=== PATIENT | female | born 1965 | race Caucasian/White ===

== ENCOUNTER 2016-10-14 | Observation (INO) | payer BC ==
[~2016-10-14] VITALS: Ht 165.1 cm; Wt 84.4 kg
[2016-10-14] VITALS (24 sets, daily range): BP systolic 100–137; RESP 12–23; TEMP 97.8–98.6; Ht 165.1 cm; Wt 84.4 kg
[2016-10-14] MEDS ORDERED: METHYLPRED SOD SUCC 125 MG/2 ML VIAL ONE (00:35)
[2016-10-14] MEDS ORDERED: hydrOXYzine 50 MG/ML VIAL IM ONE (00:40)
[2016-10-14] MEDS ORDERED: FAMOTIDINE 20 MG INJ ONE (01:21)
[2016-10-14] MEDS ORDERED: EPINEPHrine 1 MG/ML AMP ONE (01:28)
[2016-10-14] MEDS: FAMOTIDINE 20 MG INJ IV SCH ×3 (01:50→19:31)
[2016-10-14] MEDS ORDERED: SALINE FLUSH 10 ML FLUSH PRN (01:50)
[2016-10-14] MEDS: SALINE FLUSH 10 ML FLUSH SCH ×3 (01:50→19:31)
[2016-10-14] MEDS: METHYLPRED SOD SUCC 125 MG/2 ML VIAL IV SCH ×3 (01:50→11:29)
[2016-10-14] MEDS: DIPHENHYDRAMINE 50 MG/ML VIAL IV SCH ×4 (03:30→19:29)
[2016-10-14] MEDS ORDERED: MISSING DOSE XX ONE ×2 (03:30)
[2016-10-14] MEDS: SODIUM CHLORIDE 0.9% FLUSH BAG 500 ML IV SCH (06:00)
[2016-10-14] MEDS: MONTELUKAST 10 MG TAB PO SCH (11:28)
[2016-10-14] MEDS: SODIUM CHLORIDE 0.9% 1,000 ML IV SCH ×2 (13:53→23:43)
[2016-10-14] MEDS: METHYLPRED SOD SUCC 40 MG VIAL IV SCH (23:43)
[2016-10-15] VITALS (22 sets, daily range): BP systolic 110–177; RESP 12–25; TEMP 96.6–98
[2016-10-15] MEDS: DIPHENHYDRAMINE 50 MG/ML VIAL IV SCH ×3 (01:37→14:12)
[2016-10-15] MEDS: SODIUM CHLORIDE 0.9% FLUSH BAG 500 ML IV SCH (01:37)
[2016-10-15] MEDS: SALINE FLUSH 10 ML FLUSH SCH (08:40)
[2016-10-15] MEDS: MONTELUKAST 10 MG TAB PO SCH (08:41)
[2016-10-15] MEDS: FAMOTIDINE 20 MG INJ IV SCH (08:42)
[2016-10-15] MEDS: METHYLPRED SOD SUCC 40 MG VIAL IV SCH (08:42)
== END 2016-10-15 16:57 | disposition home or self-care (01) ==
LOC: ENRESERVDT → ENRESERV → ENRESERVTM → ER → INTOOBSV 01:46 → ENPENDDIS 01:46 → EMR 01:46 → ICU 03:12
PROVIDERS: ADMIT Internal Medicine; ATTEND Internal Medicine
DX: T78.3XXA Angioneurotic edema, initial encounter (principal); T36.1X5A Adverse effect of cephalosporins and other beta-lactam antibiotics, initial encounter; F41.9 Anxiety disorder, unspecified; D72.829 Elevated white blood cell count, unspecified; E86.1 Hypovolemia
CPT/HCPCS: 36415; 36430; 80053; 82553; 84484; 85025; 85610; 85730; 86900; 86901; 86927; 96372; 96374; 96375; 99219; 99233